=== PATIENT | male | born 1995 | race Two or more races ===

== ENCOUNTER 2024-11-02 09:23 | Outpatient (OUT) | payer OTHER, SELFPAY ==
--- OUTSIDE RECORDS SUMMARY | 2024-10-24 10:30 | XMS_ITS ---
Author Organization [facility] vices Address [address], [place] [id number] Care Team Providers Care Physiatrist Name Role Phone Wellington Abdi Primary Care Provider REASON FOR VISIT 2 month HTN Social History Sex Assigned At : Social History Observation Description Sex Assigned At Male Encounters Encounter Location Date Provider Diagnosis Main [address] [place], [place] [id number] 10/24/2024 Wellington Abdi Plan Of Treatment Next Appt Details Provider Name:Wellington Abdi, 04/26/2025 02:30:00 PM, [address], [place], [phone], Progress Notes * Luis LYNNDOB:[birth year] (28 yo M)Acc No.[id number]:10/24/2024 Medical Note Patient: Luis SHIELDS Provider: Castro Abdi :1995 A ge:28 Y S ex:Male Date:10/24/2024 Address:[address] [place], [id number] Subjective: * Chief Complaints: * 1 . 2 month HTN. * Medical History: Objective: * Vitals: Assessment: Plan: * Treatment: * Billing Information: * Visit Code: * Procedure Codes: * Electronic signature of SANTI Forbes on 11/02/2024 at 09:25 AM EDT Sign off status: Pending * Provider: Castro Abdi Date: 0 10/24/2024 Generated for Ruben eldridge/Mateo/Henrikitting on: 0 11/02/2024 09:25 AM EDT
--- OUTSIDE RECORDS SUMMARY | 2024-10-24 11:00 | XMS_ITS ---
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 Referred Provider [facility] Referred Provider Specialty Sleep Medici ne Referral Priority Routine REASON FOR VISIT 2 mo HTN & sleep apnea Medications Medication SIG (Take, Route, Frequency, Duration) Notes Start Date End Date Status Losartan Potassium 25 mg TAKE ONE TABLET BY MOUTH ONCE DAILY for 90 Active Metoprolol Succinate ER 25 mg TAKE ONE TABLET BY MOUTH ONCE DAILY for 90 Active amLODIPine Besylate 5 mg TAKE ONE TABLET BY MOUTH EVERY MORNING for 90 Active Ozempic (0.25 or 0.5 MG/DOSE) 2 MG/3ML as directed Subcutaneous weekly for 30 days 07/04/2024 Unknown Lexapro 10 MG 1 tablet Orally Once a day Unknown Gilbert-3 1000 MG 1 capsule Orally Thr ee times a day for 30 day(s) 08/22/2024 Active hydrOXYzine HCl 25 MG 1 tablet as needed Orally Once a day as needed Active Mounjaro 2.5 MG/0.5ML 0.25mg Subcutaneou s weekly for 30 days 08/22/2024 Active traZODone HCl 50 MG 1 tablet at bedtime as needed Orally Once a day as needed Active Social History Sex Assigned At : Social History Observation Description Sex Assigned At Male Problems Problem Type SNOMED Code ICD Code Onset Dates Problem Status W/U Status Risk Notes Problem Sleep apnea (40013792) Sleep apnea-like behavior (G47.39) Active confirmed Vital Signs Temperature 98.2 degrees Fahrenheit 10/25/19 25 Weight 253.3 lbs 10/24/2024 Height 70 in 10/24/2024 BMI 36.34 kg/m2 10/24/2024 Blood pressure systolic 137 mm Hg 10/25/19 25 Blood pressure diastolic 89 mm Hg 025 Heart Rate 98 /min 10/24/2024 Respiratory Rate 16 /min 10/24/2024 Oximetry 95 % 10/24/2024 Weight-kg 114.9 kg 10/24/2024 Height-cm 177.8 cm 10/24/2024 denies pain. Andra Michael 10/24/2024 03:07:26 PM EDT > Encounters Encounter Location Date Provider Diagnosis Main [address] [place], [place] [id number] 10/24/2024 Wellington Abdi Hypertension I10 and Sleep apnea-like behavior G47.39 Assessments Encounter Date Diagnosis (ICD Code) Assessment Notes Treatment Notes Treatment Clinical Notes Section Notes 10/24/2024 Hypertension (ICD-10 - I10) Stop amlodipine increase losartan to 50mg check bp at home and bring log to next appointment follow with cardiology pt will go to the Er with any new or worsening symptoms of but not limited to chest pain, shortness of breath, blurry vision, or headaches 10/24/2024 Sleep apnea-like behavior (ICD-10 - G47.39) Stop bang of 7 refer to sleep medicine for evaluation Plan Of Treatment Treatment Notes Assessment Notes Hypertension Stop amlodipine increase losartan to 50mg check bp at home and bring log to next appointment follow with cardiology pt will go to the Er with any new or worsening symptoms of but not limited to chest pain, shortness of breath, blurry vision, or headaches Sleep apnea-like behavior Stop bang of 7 refer to sleep medicine for evaluation Referrals Referral Date Details 10/24/2024 10/24/2024, stop ban g score of 7, [facility] Next Appt Details Follow Up: 6 Months, Reason: HTN Provider Name:Wellington Abdi, 04/26/2025 02:30:00 PM, [address], [place], [phone], Progress Notes * Luis LYNNDOB:[birth year] (28 yo M)Acc No.[id number]:10/24/2024 Medical Note Patient: Luis SHIELDS Provider: Castro Abdi :1995 A ge:28 Y S ex:Male Date:10/24/2024 Address:[address] [place], [place] [id number] Check In:02:46 PM EST Subjective: * Chief Complaints: * 1 . 2 mo HTN & sleep apnea. 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 * ROS: N egative except mentioned above in the HPI. * Medical History: M edical History Verified. * Hospitalization/Major Diagno stic Procedure: D enies Past Hospitalization. * Family History: F ather: alive, diagnosed with Hypertension, Heart Disease. M other: alive, diagnosed with Hypertension, Diabetes. P aternal Grand Father: alive, diagnosed with Hypertension. P aternal Grand Mother: alive. M aternal Grand Father: unknown. M aternal Grand Mother: alive. B rother: alive. S ister: alive. 1 brother(s) , 1 sister(s) - healthy. . * Social History: S exual History: F amily Planning A re you or your partner planning on becoming in the next year if not already ? N o W hat type of contraception are you using??None * Medications: T aking traZODone HCl 50 MG Tablet 1 tablet at bedtime as needed Orally Once a day , Notes to Pharmacist: as needed, Taking hydrOXYzine HCl 25 MG Tablet 1 tablet as needed Orally Once a day , Notes to Pharmacist: as needed, Taking Gilbert-3 1000 MG Capsule 1 capsule Orally Three times a day , Taking Mounjaro 2.5 MG/0.5ML Solution Auto-injector 0.25mg Subcutaneous weekly , Taking amLODIPine Besylate 5 mg Tablet TAKE ONE TABLET BY MOUTH EVERY MORNING , Taking Metoprolol Succinate ER 25 mg Tablet Extended Release 24 Hour TAKE ONE TABLET BY MOUTH ONCE DAILY , Taking Losartan Potassium 25 mg Tablet TAKE ONE TABLET BY MOUTH ONCE DAILY , Unknown Lexapro 10 MG Tablet 1 tablet Orally Once a day , Unknown Ozempic (0.25 or 0.5 MG/DOSE) 2 MG/3ML Solution Pen-injector as directed Subcutaneous weekly , Medication List reviewed and reconciled with the patient * Allergies: N .K.D.A. Objective: * Vitals: T emp:98.2F, Wt:253.3lbs, Ht: 70 in, BMI:36.34Index, BP:137/89mm Hg, HR:98/min, RR:16/min, Pain scale:01-10, Oxygen sat %:95%, Wt-k.9 kg, Ht-cm: 177.8 cm, Body Surface Area: 2.38. denies pain.Andra Michael 10/24/2024 03:07:26 PM EDT > . * Examination: C QM Exceptions: Currently taking Aspirin: A spirin Use: N o G eneral Examination: General appearance: a lert, pleasant, well-nourished and in no acute distress. Head: n ormocephalic, atraumatic. Ears: a uditory canal clear, tympanic membrane intact and clear. Heart: r egular rate and rhythm without murmurs, gallops, clicks or rubs. Lungs: c lear to auscultation bilaterally, with good air movement and no rales, rhonchi or wheezes. Extremities: n ormal extremity with no clubbing, cyanosis or edema. Psych: a lert and oriented x 3. Assessment: * Assessment: 1. H ypertension - I10 (Primary) 2 . S leep apnea-like behavior - G47.39? Plan: * Treatment: 2. S leep apnea-like behavior Notes: Stop bang of 7 refer to sleep medicine for evaluation Referral To: [facility] Reason:stop bang score of 7 * Procedure Codes: 3 079F HTN DIAST BP = 80-89, 3075F HTN SYST BP = 130 - 139 * Follow Up: 6 Months (Reason: HTN) * Billing Information: * Visit Code: 04022 Office Visit Est. 30-39 minutes. Modifiers: UD * Procedure Codes: 3079F HTN DIAST BP = 80-89. 3075F HTN SYST BP = 130 - 139. 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 pt presents for cocnerns of sleep apnea as well states his fiance has stated he stops breathing stop bang score of 7 Examination Category Sub-Category Detail Notes Category Not es General Examination General appearance: alert, p leasant, well-nourished and in no acute distress Head: normocephalic, atrau matic Ears: auditory canal clear , tympanic membrane intact and clear Heart: regular rate and rhy thm without murmurs, gallops, clicks or rubs Lungs: clear to auscultatio n bilaterally, with good air movement and no rales, rhonchi or wheezes Extremities: normal extremity wit h no clubbing, cyanosis or edema Psych: alert and oriented x 3 CQM Exceptions Currently taking Aspirin: Aspirin Use:: No Consultation Request Notes Referral Date Referring Provider Referred Provider Not es 10/24/2024 [facility], stop bang score of 7
--- OUTSIDE RECORDS SUMMARY | 2024-10-31 15:00 | XMS_ITS | Encounter Summary ---
Author Organization [facility] tem Address [id number] [address] [place] [address] Care Team Providers Care Clinical Product Specialist Name Role Phone No Pcp, No Pcp Primary Care Provider Unavailabl e Encounter Details Date Type Department Care Team (Late st Contact Info) Description 10/31/2024 3:00 PM EDT Office Visit [facility], A Department of [facility] [address] [phone] Dea Gayle MD [address] [address] Plaque psoriasis Social History Tobacco Use Types Packs/Day Years Used Date Smoking Tobacco: Former Vaping/E-cigarettes Quit: 07/13/2023 Smokeless Tobacco: Never Comments:Pt reports he quit vaping about 2 weeks ago upon dx Alcohol Use Standard Drinks/Week Comments Not Currently 0 (1 standard drink = 0.6 oz pur e alcohol) Childcare Answer Date Recorded Childcare Unknown 05/13/2020 Employment Answer Date Recorded Employment Unknown 05/13/2020 Hunger Screening Answer Date Recorded Within the past 12 months we worried whether our food would run out before we got money to buy more. Never True 07/09/2023 Within the past 12 months th e food we bought just didn't last and we didn't have money to get more. Never True 07/09/2023 Purpose - Life Answer Date Recorded Purpose and direction in life Unknown Sex and Gender Information Value Date Recorded Sex Assigned at Not on file Legal Sex Male 11:50 AM EDT Gender Identity Not on file Sexual Orientation Not on file documented as of this encounter Last Filed Vital Signs Vital Sign Reading Time Taken Comments Blood Pressure 142/84 10/31/2024 2:59 PM EDT Pulse - - Temperature - - Respiratory Rate 18 10/31/2024 2:59 PM EDT Oxygen Saturation - - Inhaled Oxygen Concentration - - Weight 114.3 kg (252 lb) 10/31/2024 2:59 PM EDT Height 180.3 cm (5' 10.98 ) 10/31/2024 2:59 PM E DT Body Mass Index 35.16 10/31/2024 2:59 PM EDT documented in this encounter Progress Notes * Dea Gayle MD - 10/31/2024 3:00 PM EDT Images from the original note were not included. [address] [phone] Date of Service: 10/31/2024 Subjective: Luis Gardner Linda Garcia. is a 28 y.o. male who presents today for evaluation psoriasis. Patient is seen at the request of NO PCP, NO PCP. This is follow-up visit with this patient who is 28-year-old male patient presenting today as an established patient for follow-up of psoriatic arthritis and plaque psoriasis 08/01/2024 . Patient's history dates back to age 23 years when she started having psoriatic skin lesions involving the sacalp was pu on Cosyntes for 1, years ,skin psoriais ndisappereed ,has not been on it 3.5 years,,skin scalp,legs,back Joints pain since age 24 years,knees,lower back and hands ,cosyntex did help At this time patient said that she has active skin psoriasis and pain in the joints knees as well as low back. on on Lab tests 08/01/2024 ESR CRP normal, CMP CBC normal, TB test negative X-ray sacroiliac joints mild degenerative changes and chest x-ray reported normal 08/01/2024 patient was put on Humira because of plaque psoriasis in the of forehead legs thighs andumbilicus and the back. Today [id number] patient said that psoriatic lesions has improved by remarkably The following portions of the patient's history were reviewed and updated as appropriate: allergies, current medications, past family history, past medical history, past social history, past surgicalhistory and problem list. Review of Systems: Review of Systems Constitutional: Negative. HENT: Negative. Musculoskeletal: Negative for arthralgias and back pain. Skin: Positive for rash. Allergic/Immunologic: Negative. Current Outpatient Medications Medication Sig Dispense Refill amLODIPine (NORVASC) 5 mg tablet Take 1 tablet (5 mg total) by mouth in the morning. 30 tablet 0 losartan (COZAAR) 25 mg tablet Take 1 tablet (25 mg total) by mouth in the morning. metoprolol succinate XL (TOPROL XL) 25 mg 24 hr tablet take 1 tablet by mouth every morning 30 tablet 0 adalimumab 40 mg/0.4 mL pen injector kit Inject 40 mg under the skin every 14 (fourteen) days. 2 kit 11 No current facility-administered medications for this visit. Physical Exam: Physical Exam Vitals and nursing note reviewed. Constitutional: General: He is not in acute distress. Appearance: He is well-developed. He is not diaphoretic. HENT: Head: Normocephalic and atraumatic. Right Ear: External ear normal. Left Ear: External ear normal. Nose: Nose normal. Eyes: Pupils: Pupils are equal, round, and reactive to light. Neck: Thyroid: No thyromegaly. Cardiovascular: Heart sounds: No murmur heard. Musculoskeletal: General: No tenderness or deformity. Normal range of motion. Skin: General: Skin is warm and dry. Findings: No erythema or rash. Comments: Erythematous lesion involving legs and thigh and umbilicus with no scaling or thick lesions Neurological: Mental Status: He is alert and oriented to person, place, and time. Cranial Nerves: No cranial nerve deficit. Coordination: Coordination normal. Psychiatric: Behavior: Behavior normal. MALDONADO-28 (If Applicable) There is currently no information documented on the homunculus. Go to the Rheumatology activity andcomplete the homunculus joint exam. MALDONADO-28 (CRP): -- MALDONADO-28 (ESR): -- Tender (MALDONADO-28): -- Swollen (MALDONADO-28): -- BP 142/84 Resp 18 Ht 180.3 cm (5' 10.98 ) Wt 114.3 kg (252 lb) BMI 35.16 kg/m?? : reviewed Labs and Imaging: reviewed and discussed with the patient during the visit.I Lab Results Component Value Date WBC 7.1 08/01/2024 HGB 14.2 08/01/2024 HCT 42.0 08/01/2024 MCV 86 08/01/2024 CRP 0.2 08/01/2024 GFR >60 09/25/2021 GFR >60 09/25/2021 AST 27 08/01/2024 Imaging: Assessment and Plan: Luis Mckeon Jr. is a 28 y.o. male patient with: 1. Plaque psoriasis - adalimumab 40 mg/0.4 mL pen injector kit; Inject 40 mg under the skin every 14 (fourteen) days. Dispense: 2 kit; Refill: 11 At this point patient has responded very well to Humira for the skin psoriasis. Will keep him same medications. Return to clinic 3 month. Total [id number] time was 40 minutes with more than 50% of the visit spent counseling and discussing diagnostic or treatment recommendations, prognosis, risks and benefits of management options, instructions, compliance or risk- factor reduction. This note was created with the assistance of a speech recognition program. While intending to generate a timely document that accurately reflects the content of the visit, no guarantee can be provided that every grammatical or spelling mistake has been or will be identified or corrected. Thank you for your understanding. [facility] Dr. Dea Gayle MD [address] [facility], [address] [place] [address] Office: [phone] documented in this encounter Plan of Treatment Upcoming Encounters Date Type Department Care Team (Late st Contact Info) Description 11/14/2024 1:30 PM EDT Office Visit [facility] [address] [place] [address] Sarah Shea MD [address] [place] [address] Sarahi Chavez MD [address] [phone] 01/31/2025 3:30 PM EDT Telemedicine [facility] [address] [phone] Dea Gayle MD [address] [address] documented as of this encounter Visit Diagnoses Diagnosis Plaque psoriasis Other psoriasis documented in this encounter Care Teams Clinical Product Specialist Relationship Specialty Start Date End Date No Pcp, [place] [address] PCP - General Family Medicine 09/25/21 documented as of this encounter
--- OUTSIDE RECORDS SUMMARY | 2024-11-02 09:26 | XMS_ITS | Patient Health Record ---
Author Organization [facility] Address [address] [place], [place] [id number] Care Team Providers Care Pulmonary Disease Specialist Name Role Phone Wellington Abdi Primary Care Provider Allergies No Known Allergies Results Component Value Reference Range Notes Echocardiogram Reviewed date:06/29/2024 04:38:54 PM Interpretation: Performing Lab: Notes/Report: COMPREHENSIVE METABOLIC PANE L (AMA) Reviewed date:06/07/2024 08:14:16 AM Interpretation: Performing Lab: Notes/Report: GLUCOSE 93 65-125 mg/dL SODIUM 142 135-148 mmol/L POTASSIUM 4.2 3.5-5.4 mmol/L CHLORIDE 102 96-107 mmol/L CO2 29 18-32 mmol/L BUN 11 6-20 mg/dL CREATININE, BLOOD 0.91 0.67-1.30 mg/dL eGFR (2020 CKD-EPI) 117 >59 mL/min/1.73m2 CALCIUM 9.9 8.6-10.5 mg/dL T. PROTEIN 7.6 6.0-8.3 g/dL ALBUMIN 4.5 3.5-5.2 g/dL GLOBULIN 3.1 1.8-3.8 g/dL A/G RATIO 1.5 1.0-2.5 RATIO ALK PHOS 116 39-118 U/L AST-SGOT 20 9-50 U/L ALT-SGPT 29 5-41 U/L T. BILIRUBIN 0.2 <1.3 mg/dL UNLESS OTHERWISE INDICATED, ALL TESTING PERFORMED AT: [employer] [address] [place] [address] LIFT OPERATOR: Jenna NOONANIA NUMBER [id number] [facility] ACCREDITATION AUID [id number] LIPID PROFILE Reviewed date:08/14/2024 04:28:02 PM Interpretation: Performing Lab: Notes/Report: CHOLESTEROL 167 150-200 mg/dL TRIGLYCERIDE 180 27-150 mg/dL HDL CHOLESTEROL 39 >39 mg/dL HDL <40 mg/dL - High Risk HDL > or = 40mg/dL- Desirable HDL >60 mg/dL - Negative Risk VERY LOW LIPOPROTEIN 36 0-30 mg/dL LDL (CALC) 92 <130 mg/dL LDL <100 mg/dL - Desirable LDL >160 mg/dL - High Risk CHOLESTEROL:HDL 4.3 1.0-5.0 PERFORMED AT [facility] [address],[place] [address] Reason For Referral Reason prev. psoriatic arth ritis dx Diagnosis 1 Arthritis (M19.90) Referral Organization Main Referring Provider First Name Wellington Referring Provider Last Name Studd Referring Provider Speciality Physician Geothermal Powerplant Supervisor Referred Provider [facility] Nyasia Referred Provider Specialty Rheumatology General Notes Andra Michael 08/2024 11:32:16 AM >{ {TOFIRSTNAME}} This is [facility] following up on an outstanding referral that was ordered by your provider. Please call our office at , so we can _update our records., Andra Michael 08/02/2024 09:55:16 AM >no response from patient. Referral Priority Routine Reason Echo EF 50-55%, HTN Diagnosis 1 Hypertension (I10) Referral Organization Main Referring Provider First Name Wellington Referring Provider Last Name Studd Referring Provider Speciality Physician Geothermal Powerplant Supervisor Referred Provider [facility] Nyasia Referred Provider Specialty Cardiology General Notes Andra Michael 08/2024 11:32:01 AM >{ {TOFIRSTNAME}} This is [facility] following up on an outstanding referral that was ordered by your provider. Please call our office at , so we can _update our records., Andra Michael 08/02/2024 09:54:58 AM >no response from patient. Referral Priority Routine Reason stop bang score of 7 Diagnosis 1 Sleep apnea-like beh avior (G47.39) Referral Organization Main Referring Provider First Name Wellington Referring Provider Last Name Jin Referring Provider Speciality Physician Geothermal Powerplant Supervisor Referred Provider [facility] Referred Provider Specialty Sleep Medici ne Referral Priority Routine Medications Medication SIG (Take, Route, Frequency, Duration) Notes Start Date End Date Status [place]ism[place]-3 1000 MG 1 capsule Orally Thr ee times a day for 30 day(s) 08/22/2024 Active hydrOXYzine HCl 25 MG 1 tablet as needed Orally Once a day as needed Active Losartan Potassium 25 mg TAKE ONE TABLET BY MOUTH ONCE DAILY for 90 Active Metoprolol Succinate ER 25 mg TAKE ONE TABLET BY MOUTH ONCE DAILY for 90 Active amLODIPine Besylate 5 mg TAKE ONE TABLET BY MOUTH EVERY MORNING for 90 Active Mounjaro 2.5 MG/0.5ML 0.25mg Subcutaneou s weekly for 30 days 08/22/2024 Active Ozempic (0.25 or 0.5 MG/DOSE) 2 MG/3ML as directed Subcutaneous weekly for 30 days 07/04/2024 Unknown Lexapro 10 MG 1 tablet Orally Once a day Unknown traZODone HCl 50 MG 1 tablet at bedtime as needed Orally Once a day as needed Active Social History Sex Assigned At : Social History Observation Description Sex Assigned At Male Problems Problem Type SNOMED Code ICD Code Onset Dates Problem Status W/U Status Risk Notes Problem Sleep apnea (42090703) Sleep apnea-like behavior (G47.39) Active confirmed Problem Hypertension (82720165) Hypertension (I10) Active confirmed Problem 637221795 Hypertriglycerid emia (E78.1) Active confirmed Problem Arthritis (5253003) Arthritis (M19.90) Active confirmed Problem Obese class I (finding) (37171053118046 7) Obesity (BMI 30.0-34.9) (E66.9) Active confirmed Vital Signs Heart Rate 98 /min 10/24/2024 denies pain. Me Andra reid 10/24/2024 03:07:26 PM EDT > Temperature 98.2 degrees Fahrenheit 10/24/2024 juan ramon es pain. Andra Michael 10/24/2024 03:07:26 PM EDT > Respiratory Rate 16 /min 10/24/2024 denies pain . Andra Michael 10/24/2024 03:07:26 PM EDT > Height-cm 177.8 cm 10/24/2024 denies pain. Va Andra reid 10/24/2024 03:07:26 PM EDT > Oximetry 95 % 10/24/2024 denies pain. Va Andra reid 10/24/2024 03:07:26 PM EDT > Blood pressure diastolic 89 mm Hg 10/24/2024 den ies pain. Andra Michael 10/24/2024 03:07:26 PM EDT > Weight-kg 114.9 kg 10/24/2024 denies pain. Va Andra reid 10/24/2024 03:07:26 PM EDT > Height 70 in 10/24/2024 denies pain. Va Andra reid 10/24/2024 03:07:26 PM EDT > Blood pressure systolic 137 mm Hg 10/24/2024 juan ramon es pain. Andra Michael 10/24/2024 03:07:26 PM EDT > Weight 253.3 lbs 10/24/2024 denies pain. Va Andra reid 10/24/2024 03:07:26 PM EDT > BMI 36.34 kg/m2 10/24/2024 denies pain. Va Andra reid 10/24/2024 03:07:26 PM EDT > Encounters Encounter Location Date Provider Diagnosis [facility] [address] [facility] [place] [id number] 06/06/2024 Wellington Abdi Hypertension I10 and Heart palpitations R00.2 Main [address] [place] [id number] 06/20/2024 Wellington Abdi Arthritis M19.90 Main [address] [place], [place] [id number] 07/04/2024 Wellington Studlydia Obesity (BMI 30.0-34 .9) E66.9 ; Hypertension I10 and Arthritis M19.90 Main [address] [place] [id number] 08/22/2024 Wellington Studd Hypertriglyceridemia E78.1 and Obesity (BMI 30.0-34.9) E66.9 Main [address] [place] [id number] 10/24/2024 Wellington Studd Hypertension I10 and Sleep apnea-like behavior G47.[address] [place], [place] [id number] 07/04/2024 Wellington Studd Main [address] [place], [place] [id number] 07/05/2024 Wellington Studd Main [address] [place], [place] [id number] 08/22/2024 Wellington Studd Main [address] [place], [place] [id number] 09/15/2024 Wellington Studd Main [address] [place], [place] [id number] 09/15/2024 Wellington Studd Main [address] [place] [id number] 06/06/2024 Wellington Studd Main [address] [place] [id number] 06/06/2024 Wellington Studd Assessments Encounter Date Diagnosis (ICD Code) Assessment [...] shortness of breath, blurry vision, or headaches 06/06/2024 Hypertension (ICD-10 - I10) I will start the patient on a third BP med in Losartan 25mg PO. I have ordered an echo for the pt due to the HTN being elevated despite two medications and stroing family history pt agrees to go to Er if they feel SOB, chest pain, dyspnea i will see pt in 4 weeks to recheck BP and discuss the results of the ECHO 06/06/2024 Heart palpitations (ICD-10 - R00.2) Pthas history of palpations occasionally I will order Holter monitor for the pt to capture these events as well s order an echo due to the elevated Bp, palpations, and the chest pains 06/20/2024 Arthritis (ICD-10 - M19.90) pt has a psoricat arthriths daignosis form previopus derm I will refer to derm at this time for further eval I will discuss with pt if they would like to see rheum 07/04/2024 Hypertension (ICD-10 - I10) Pts echo showed EF of 50-55% I will refer to cardiology for further evaluation of this I will continue the current medications as BP is controlled today 07/04/2024 Obesity (BMI 30.0-34 .9) (ICD-10 - E66.9) I will start Ozempic for the pt as he has a lower ejection fraction, HTN and obessity i will order lab work for Lipid, TSH 08/22/2024 Hypertriglyceridemia (ICD-10 - E78.1) i will start fish oil for the patient at this time enocuraged diet and exercise pt agreeeable with plan 08/22/2024 Obesity (BMI 30.0-34 .9) (ICD-10 - E66.9) pt is unable to lose weight with conservative measures pt is not a canadaite for adipex given heart condtions I will try mounjaro at this time pt agreeable with plan 10/24/2024 Sleep apnea-like behavior (ICD-10 - G47.39) Stop bang of 7 refer to sleep medicine for evaluation 07/04/2024 Arthritis (ICD-10 - M19.90) Pt has history of psoriatic arthritis would like to see rheum Plan Of Treatment Next Appt Details Provider Name:Wellington Abdi, 04/26/2025 02:30:00 PM, [address], [id number], Insurance Providers Payer Name Payer Address Payer Phone Subscriber Number Group Number Insured Name Patient Relationship to Insured Coverage Start Date Coverage End Date [facility] [address] [address] [place] [phone] [id number] Luis Membreno Self - patient is the insured 5 Medicaid [employer] after [place] [address] [place] [id number] Luis Membreno Self - patient is the insured 5
--- OUTSIDE RECORDS SUMMARY | 2024-11-02 09:26 | XMS_ITS | Clinical Summary ---
Author Organization [facility] Address [facility] [id number] [address] [place] [address] Care Team Providers Care Senior Packaging Engineer Name Role Phone No Pcp, No Pcp Primary Care Provider Unavailabl e Allergies No known active allergies Medications amLODIPine (NORVASC) 5 mg tabletIndicatio ns:Primary hypertension Take 1 tablet (5 mg total) by mouth in the morning. 30 tablet 08/13/19 24 Active metoprolol succinate XL (TOPROL XL) 25 mg 24 hr tabletIndicatio ns:Primary hypertension take 1 tablet by mouth every morning 30 tablet 10/13/19 24 Active losartan (COZAAR) 25 mg tablet Take 1 tablet (25 mg total) by mouth in the morning. Active adalimumab 40 mg/0.4 mL pen injector kitIndications: Plaque psoriasis Inject 40 mg under the skin every 14 (fourteen) days. 2 kit 11 11/01/19 25 Active adalimumab 40 mg/0.4 mL pen injector kitIndications: Plaque psoriasis Inject 40 mg under the skin every 14 (fourteen) days. 2 kit 11 08/31/19 25 025 Discontinued(Re order) adalimumab (HUMIRA) 80 mg/0.8 mL pen injector kitIndications: Plaque psoriasis 80 mg subcu injection 1 time 0.8 mL 09/05/19 25 025 Discontinued(Re order) adalimumab (HUMIRA) 80 mg/0.8 mL pen injector kitIndications: Plaque psoriasis 80 mg subcu injection every 2 weeks 16 mL 3 11/01/19 25 025 Discontinued Active Problems Problem Noted Date Diagnosed Date assisted (current) use of immunosuppressive bio logic 08/01/2024 Plaque psoriasis 08/01/2024 Suspected sleep apnea 07/13/2023 Primary hypertension 07/13/2023 Anxiety 07/13/2023 Abscess 09/04/2022 Encounters Date Type Department Care Team Description 10/31/2024 3:00 PM EDT Office Visit [facility] Department of [address] [phone] Dea Gayle MD Plaque psoriasis 10/31/2024 Travel 09/15/2024 Telephone [facility] [address] [place] [phone] Dea Gayle MD 09/04/2024 Refill [facility] Department of [address] [phone] Dea Gayle MD Plaque psoriasis (Primary Dx) 08/30/2024 Telephone [facility] [address] [place] [phone] Elena Olivas [facility] Prior Authorization (Humira) 08/30/2024 Telephone [facility] Department of [address] [phone] Bruna Bella CMA 08/14/2024 Telephone [facility] [address] [place] [phone] Dea Gayle MD 08/11/2024 11:28 AM EDT - 08/11/2024 11:59 PM EDT Hospital Encounter [facility] [address] [place] [address] Obesity, unspecified (Primary Dx) Discharge Disposition: Home 08/11/2024 Travel 08/03/2024 Telephone [facility] [address] [place] [address] Dea Gayle MD 08/03/2024 Telephone [facility] Department of [facility] [address] [phone] Gifty Collins CMA from Last 3 Months Social History Tobacco Use Types Packs/Day Years Used Date Smoking Tobacco: Former Vaping/E-cigarettes Quit: 07/13/2023 Smokeless Tobacco: Never Tobacco Cessation:Counseling Given: Not Answered Comments:Pt reports he quit vaping about 2 [...] on file Sexual Orientation Not on file Last Filed Vital Signs Vital Sign Reading Time Taken Comments Blood Pressure 142/84 10/31/2024 2:59 PM EDT Pulse 85 06/27/2024 2:06 PM EST Temperature 37.3 C (99.1 F) 07/09/2023 12:55 AM EST Respiratory Rate 18 10/31/2024 2:59 PM EDT Oxygen Saturation 99% 07/13/2023 12:17 PM EST Inhaled Oxygen Concentration - - Weight 114.3 kg (252 lb) 10/31/2024 2:59 PM EDT Height 180.3 cm (5' 10.98 ) 10/31/2024 2:59 PM E DT Body Mass Index 35.16 10/31/2024 2:59 PM EDT Plan of Treatment Upcoming Encounters Date Type Department Care Team (Late st Contact Info) Description 11/14/2024 1:30 PM EDT Office Visit [facility] [address] [facility] [address] [place] [phone] Sarah Shea MD [address] [place] [address] Sarahi Chavez MD [address] [place], [place] [phone] 01/31/2025 3:30 PM EDT Telemedicine [facility] Department of [facility] [address] [phone] Dea Gayle MD [address] [address] Health Maintenance Due Date Last Done Comments Depression Screening 2006 Adult BMI Follow Up Plan 2012 COVID-19 Vaccine ( season) 2024, 04/23/2021 Influenza Vaccine 01/22/2025 Adult BMI Screening 10/31/2025 10/31/2024 Tobacco Screening 10/31/2025 10/31/2024 DTaP,Tdap and Td Vaccines (2 - Td or Tdap) 08/02/2033 08/03/2023 Medical Devices Not on file Procedures Procedure Name Priority Date/Time Associated Diagnosis Comments LIPID PROFILE Routine 08/11/2024 11:29 AM EDT Obesity, unspecified from Last 3 Months Results * (ABNORMAL) Lipid profile (08/11/2024 11:29 AM EDT) Cholesterol 167 150 - 200 mg/dL 08/11/2024 6:23 PM EDT [facility] Triglycerides 180(H) 27 - 150 mg/dL 08/11/2024 6:23 PM EDT [facility] HDL Cholesterol 39(L) >39 mg/dL 6:23 PM EDT [facility] Comment: HDL <40 mg/dL - High Risk HDL > or = 40mg/dL- Desirable HDL >60 mg/dL - Negative Risk VLDL 36(H) 0 - 30 mg/dL 08/11/2024 6:23 PM EDT [facility] LDL (calc) 92 <130 mg/dL 08/11/2024 6:23 PM EDT [facility] Comment: LDL <100 mg/dL - Desirable LDL >160 mg/dL - High Risk Cholesterol:HDL Ratio 4.3 1.0 - 5.0 08/11/2024 6:23 PM EDT [facility] PLASMA 08/11/2024 11:2 9 AM EDT 08/11/2024 11:33 AM EDT us Wellington Abdi PA-C LAB BLOOD ORDERABLES Final R esult Performing Organization Address City/State/[facility] Co de Phone Number [facility] [address] [facility], [address] [place] [address] from Last 3 Months Insurance [employer] Care Teams Senior Packaging Engineer Relationship Specialty Start Date End Date No Pcp, [place] [address] PCP - General Family Medicine 09/25/21
--- OUTSIDE RECORDS SUMMARY | 2024-11-02 09:26 | XMS_ITS | Clinical Summary ---
Author Organization [facility] Address [address] [place] [address] Phone Care Team Providers Care Filling Hauler Name Role Phone Gris Bateman DO Primary Care Provider [phone] Social History Tobacco Use Types Packs/Day Years Used Date Smoking Tobacco: Never Assessed Sex and Gender Information Value Date Recorded Sex Assigned at Not on file Legal Sex Male 7:00 PM EST Gender Identity Not on file Sexual Orientation Not on file Last Filed Vital Signs Vital Sign Reading Time Taken Comments Blood Pressure 132/88 06/06/2019 2:11 PM EST Pulse 88 06/06/2019 2:11 PM EST Temperature 36.6 C (97.9 F) 06/06/2019 2:11 PM EST Respiratory Rate - - Oxygen Saturation - - Inhaled Oxygen Concentration - - Weight 98.7 kg (217 lb 8 oz) 06/06/2019 2:11 PM EST Height 179.1 cm (5' 10.5 ) 06/06/2019 2:11 PM ES T Body Mass Index 30.77 06/06/2019 2:11 PM EST Plan of Treatment Not on file Care Teams Filling Hauler Relationship Specialty [place] [address] [address] PCP - General 06/06/19
--- OUTSIDE RECORDS SUMMARY | 2024-11-02 09:26 | XMS_ITS | Encounter Summary ---
Author Organization [facility] tem Address [id number] [address] [place] [address] Care Team Providers Care Painter And Body Mechanic Apprentice Name Role Phone No Pcp, No Pcp Primary Care Provider Unavailabl e Encounter Details Date Type Department Care Team (Latest Contact Info) Description 10/31/2024 Travel Social History Tobacco Use Types Packs/Day Years [...] on file documented as of this encounter Plan of Treatment Upcoming Encounters Date Type Department Care Team (Late st Contact Info) Description 11/14/2024 1:30 PM EDT Office Visit [facility] [address] [place] [phone] Sarah Shea MD [address] [place], [place] [phone] Sarahi Chavez MD [address] [place] [address] 01/31/2025 3:30 PM EDT Telemedicine [facility] Department of [facility] [address] [phone] Dea Gayle MD [address] [address] documented as of this encounter Visit Diagnoses Not on filedocumented in this encounter Care Teams Painter And Body Mechanic Apprentice Relationship Specialty Start Date End Date No Pcp, [place] [address] PCP - General Family Medicine 09/25/21 documented as of this encounter
--- OUTSIDE RECORDS SUMMARY | 2024-11-02 09:26 | XMS_ITS | Clinical Summary ---
Author Organization [facility] Address [address] [place] [address] Care Team Providers Care Blowing Engineer Name Role Phone Unavailable Primary Care Provider Unavailabl e Allergies No known active allergies Medications No known medications Social History Tobacco Use Types Packs/Day Years Used Date Smoking Tobacco: Never Assessed Sex and Gender Information Value Date Recorded Sex Assigned at Not on file Legal Sex Male 9:12 AM EDT Gender Identity Not on file Sexual Orientation Not on file Last Filed Vital Signs Vital Sign Reading Time Taken Comments Blood Pressure 156/87 11/28/2016 3:54 PM EDT Pulse 108 11/28/2016 3:54 PM EDT Temperature 37.1 C (98.8 F) 11/28/2016 2:41 PM EDT Respiratory Rate 20 11/28/2016 3:54 PM EDT Oxygen Saturation 96% 11/28/2016 3:54 PM EDT Inhaled Oxygen Concentration - - Weight 88.5 kg (195 lb) 11/28/2016 2:41 PM EDT Height 176.8 cm (5' 9.6 ) 09/25/2013 8:13 AM EDT Body Mass Index - - Plan of Treatment Health Maintenance Due Date Last Done Comments Anxiety Screening 2012 Depression Screening 2012 HIV Screening 2012 Hepatitis C Screening 2012 DTaP,Tdap,Td Vaccine (1 - Tdap) 2013 Hepatitis B Vaccine (1 of 3 - 19+ 3-dose series) 12/20 Covid-19 Vaccine ( - season) 2024 Influenza Vaccine (Season Ended) 2025 Insurance * Guarantor: Luis Lynn Jr. Account Type Relation to Patient Date of Phone Billing Address Personal/Family Self [address] [place] [address] [facility] PREFERRED
--- OUTSIDE RECORDS SUMMARY | 2024-11-02 09:26 | XMS_ITS | Encounter Summary ---
Author Organization [facility] Address [id number] [address] [place] [address] Care Team Providers Care Gravedigger Name Role Phone No Pcp, No Pcp Primary Care Provider Unavailabl e Encounter Details Date Type Department Care Team (Late st Contact Info) Description 08/03/2024 [facility]phone [facility] [address] [phone] Gifty Collins CMA Social History Tobacco Use Types Packs/Day Years [...] on file documented as of this encounter Miscellaneous Notes * Telephone Encounter - Gifty Collins CMA - 08/03/2024 12:15 PM EDT Luis called and stated that he would like to be updated when his TB test comes through. He just wants to know so that he can start his medication. * Telephone Encounter - Dea Gayle MD - 08/03/2024 12:15 PM EDT TB test in process * Telephone Encounter - Bruna Bella CMA - 08/03/2024 12:15 PM EDT Called and spoke with Nicholas baltazar TB test came back negative and he can call and get his consentyxshipment setup documented in this encounter Plan of Treatment Upcoming Encounters Date Type Department Care Team (Late st Contact Info) Description 11/14/2024 1:30 PM EDT [facility] Visit [facility] [address] [facility] [place] [phone] Sarah Shea MD [address] [place] [address] Sarahi Chavez MD [address] [place] [address] 01/31/2025 3:30 PM EDT Telemedicine [facility] Department of [facility] [address] [phone] Dea Gayle MD [address] [address] documented as of this encounter Visit Diagnoses Not on filedocumented in this encounter Care Teams Gravedigger Relationship Specialty Start Date End Date No Pcp, [place] [address] PCP - General Family Medicine 09/25/21 documented as of this encounter
== END 2024-11-02 09:24 | disposition home or self-care (01) ==
LOC: SLEEP 09:23
DX: G47.33 Obstructive sleep apnea (adult) (pediatric) (principal)
CPT/HCPCS: 95806